=== PATIENT | female | born 1995 | race Hispanic/Latino ===

== ENCOUNTER 2017-08-21 09:27 | Emergency (ER) | payer OTHER ==
[~2017-08-21] VITALS: Ht 147.3 cm; Wt 74.8 kg
[~2017-08-21 09:27] MED LIST: ACTHAR H.P80 UNIT/1 SQ; ASA81 MG; ASPIR 8181 MG PO; ATORVASTATIN CA20 MG PO; BUMETANIDE1 MG PO; CALCIUM ACETAT667 M1 PO; CELLCEPT500 MG PO; FENOFIBRATE145 MG PO; HYDROXYCHLOROQ200 MG PO; LISINOPRIL2.5 MG PO; METOPROLOL TART25 MG PO; MILLIPRED5 MG PO; PEPCID20 MG PO; PREDNISOLONE; PREDNISONE20 MG PO; PREVACID30 MG PO; PROTONIX40 MG/ML PO; VITAMIN D1000 UNI1 PO; Z.0.CELLCEPT500 MG; Z.0.FLEXERIL10 MG; Z.0.HYDROXYCHLOROQ20; Z.0.OSCAL D500 MG; [UNRECOGNIZED DRUG - OTHER]; [UNRECOGNIZED DRUG - OTHER]
[2017-08-21] MEDS ORDERED: SODIUM CHLORIDE 0.9% 1000ML 1,000 ML IV STA ×2 (10:06→12:23)
[2017-08-21 10:55] LABS: BASOPHILS # (AUTO) 0.1 (0.0-0.1); BASOPHILS % 0.6 % (0.0-1.0); EOSINOPHILS % 0.5 % (0.0-6.0); HEMATOCRIT 37.2 % (34.2-44.1); LYMPHOCYTES # (AUTO) 1.5 (1.0-3.2); LYMPHOCYTES % 16.9 % (18.0-39.1); MEAN CORPUSCULAR HEMOGLOBIN 26.1 pg (28-32); MEAN CORPUSCULAR HGB CONC 32.3 g/dL (31-35); MONOCYTES # (AUTO) 0.6 (0.2-0.8); MONOCYTES % 7.3 % (4.4-11.3); NEUTROPHILS # (AUTO) 6.3 (2.1-6.9); NEUTROPHILS % 73.1 % (38.7-80.0); PLATELET COUNT 311 x10e3/uL (140-360); RED BLOOD COUNT 4.59 x10e6/uL (3.6-5.1); RED CELL DISTRIBUTION WIDTH 16.7 % (11.7-14.4)
[2017-08-21] MEDS ORDERED: KETOROLAC TROMETHAMINE 30 MG/ML VIAL IV ONE (11:00)
[2017-08-21 11:16] LABS: ALANINE AMINOTRANSFERASE 13 IU/L (0-55); ALBUMIN 1.3 g/dL (3.5-5.0); ALBUMIN/GLOBULIN RATIO 0.3 (0.8-2.0); ALKALINE PHOSPHATASE 51 IU/L (40-150); ANION GAP 10.8 mmol/L (8-16); BLOOD UREA NITROGEN 20 mg/dL (7-26); BUN/CREATININE RATIO 20 (6-25); CALCIUM 8.2 mg/dL (8.4-10.2); CARBON DIOXIDE 32 mmol/L (22-29); CHLORIDE 94 mmol/L (98-107); EST GLOMERULAR FILTRATION RATE > 60 ML/MIN (60-); GLUCOSE 83 mg/dL (74-118); SODIUM 134 mmol/L (136-145)
[2017-08-21 11:18] LABS: POTASSIUM 2.8 mmol/L (3.5-5.1)
[2017-08-21] MEDS ORDERED: ACETAMINOPHEN 325 MG TAB PO ONE (11:30)
[2017-08-21] MEDS ORDERED: OSELTAMIVIR PHOSPHATE 75 MG CAP PO ONE (11:45)
[2017-08-21 12:22] VITALS: BP 124/91
[2017-08-21] MEDS ORDERED: POTASSIUM CHLORIDE 20 MEQ TAB CR PO ONE (12:30)
--- NOTE | 2017-08-21 13:13 | Diagnostic Imaging Report ---
EXAMINATION: PA and lateral views of the chest. COMPARISON: CT abdomen and pelvis 01/09/2017 CLINICAL HISTORY: Cough, fever, headache DISCUSSION: Lines/tubes: None. Lungs: The lungs are well inflated and clear. There is no evidence of pneumonia or pulmonary edema. Pleura: There is no pleural effusion or pneumothorax. Heart and mediastinum: Cardiomediastinal silhouette is unremarkable. Pulmonary vasculature is normal. Bones and soft tissues: No acute bony abnormalities. IMPRESSION: No acute cardiopulmonary abnormalities. Signed by: Dr. Migel Larsen M.D. on 08/21/2017 1:10 PM
== END 2017-08-21 13:39 | disposition home or self-care (01) ==
LOC: ER 09:27
DX: R50.9 Fever, unspecified (principal); R05 Cough; R11.0 Nausea; R51 Headache; J09.X2 Influenza due to identified novel influenza A virus with other respiratory manifestations; E87.6 Hypokalemia
CPT/HCPCS: 36415; 71020; 80053; 85025; 87400; 96360; 99284; J7030

== ENCOUNTER → 2018-10-09 | Outpatient (CLI) | payer OTHER ==
--- NOTE | 2018-10-09 16:13 | Diagnostic Imaging Report ---
EXAM: US ABDOMEN COMPLETE DATE: 10/09/2018 3:08 PM INDICATION: Abdominal and flank pain, kidney stones COMPARISON: None TECHNIQUE: Transverse and longitudinal thomason scale and color doppler sonographic images of the upper abdomen were obtained. FINDINGS: LIVER 12.8 cm in the right midclavicular line. Normal echogenicity, normal contour, no masses. SPLEEN 10.4 cm in maximum diameter. Normal echogenicity, no masses. GALLBLADDER No stones, sludge, wall-thickening or pericholecystic fluid. Negative sonographic Chang's sign. BILE DUCTS No intra nor extra-hepatic biliary dilation. Common bile duct measures 0.3 cm PANCREAS: Poorly visualized secondary to overlying bowel gas. RIGHT KIDNEY: 10.9 cm in length Echogenicity: Normal Collecting System: No hydronephrosis Stones: None Cyst/Mass: None LEFT KIDNEY: 11.1 cm in length Echogenicity: Normal Collecting System: No hydronephrosis Stones: None Cyst/Mass: None VESSELS: Aorta: Nonaneurysmal Inferior Vena Cava: Patent Main Portal Vein: 1.1 cm, normal size with hepatopetal flow. FREE FLUID: None IMPRESSION: Unremarkable abdominal ultrasound. Signed by: Dr. Tho Scott M.D. on 10/09/2018 4:10 PM
== END ==
LOC: US 14:58
PROVIDERS: ATTEND Internal Medicine Nephrology
DX: R10.9 Unspecified abdominal pain (principal); M54.5 Low back pain
CPT/HCPCS: 76700

== ENCOUNTER 2019-06-05 10:49 | Emergency (ER) | payer OTHER ==
[~2019-06-05] VITALS: Ht 147.3 cm; Wt 63.5 kg
--- OUTSIDE RECORDS SUMMARY | 2019-06-05 10:51 | XMS REPORT ---
Author Author [facility] Address Unknown Phone Unavailable Care Team Providers Care Journal Box Inspector Name Role Phone CHEYANNEKARENJED LINDA Unavailable Unavailable Juan Jose ODEN Unavailable Unavailable Payers Payer Name Policy Type Policy Number Effective Date Expiration Date Problems This patient has no known problems. Allergies, Adverse Reactions, Alerts Allergy Name Allergy Type Status Severity Reaction(s) Onset Date Inactive Date Treating Clinician Comments vancomycin DA Active U 2018-11-28 00:00:00 amitriptyline DA Active [facility] 2018-07-31 00:00:00 cefazolin DA Active [place] 2018-07-31 00:00:00 amitriptyline DA Active [facility] 2018-07-23 00:00:00 cefazolin DA Active MO 2018-07-23 00:00:00 amitriptyline DA Active [place] 2017-10-19 00:00:00 cefazolin DA Active [place] 2017-10-19 00:00:00 Medications This patient has no known medications. Results Test Description Test Time Test Comments Text Results Atomic Results Result Comments - XR CHEST 2 V 2018-11-28 15:42:00 FAX: Terrance Griffiths MD [phone] [place]: St: PRE FAX: Gabriela Da Silva [phone] Name: RADHA WILKERSON : 1995 Age/S: 23/F [address] [place] [address] Unit #: [id number] Loc: [place] [address] Phys: Terrance Benitez MD Acct: [id number] Dis Date: Status: PRE SDC PHONE #: [phone] Exam Date: 11/28/2018 1539 FAX #: [phone] Reason: ESRD EXAMS: CPT CODE: [id number] XR CHEST 2 V 93829 2 view chest x-ray performed November 28, 2018 1534 hours. COMPARISON: August 22, 2018. CLINICAL HISTORY: End-stage renal disease. DISCUSSION: 2 views/ films of the chest are submitted. Right dual port dialysis catheter is present. Lungs are clear bilaterally. Cardiomediastinal silhouette is normal. Osseous structures are within normal limits. IMPRESSION: No acute cardiopulmonary findings at 1546 Reported and signed by: Jacy Conklin M.D. CC: Terrance Benitez MD; Gabriela Suarez MD Technologist: RT Jose Antonio(R), RTT Trnscrd Date/Time/By: 11/28/2018 (0357) : By: [email or web address] Orig Print D/T: S: 11/28/2018 (7519) PAGE 1 Signed Report BASIC METABOLIC PANEL 2018-11-28 15:34:00 SODIUM (test code=NA) 140 mEq/L 134-147 POTASSIUM (test code=K) 3.6 mEq/L 3.4-5.0 CHLORIDE (test code=CL) 107 mEq/L 100-108 CARBON DIOXIDE (test code=CO2) 29 mEq/L 21-33 ANION GAP (test code=GAP) 8 0-20 GLUCOSE (test code=GLU) 111 mg/dL 70-110 BLOOD UREA NITROGEN (test code=BUN) 19 mg/dL 7-18 GLOMERULAR FILTRATION RATE (test code=GFR) 10.6 110-120 Units of measure=ml/min/1.73 m2 CREATININE (test code=CREAT) 5.0 mg/dL 0.6-1.3 CALCIUM (test code=CA) 6.9 mg/dL 8.0-10.5 HCG SERUM [id number] 15:34:00* Test Item Value Reference Range Comments HCG SERUM QUAL (test code=HCGQL) SERUM NEGATIVE NEGATIVE BASIC METABOLIC [id number] 15:31:00* Test Item Value Reference Range Comments SODIUM (test code=NA) mEq/L 134-147 POTASSIUM (test code=K) mEq/L 3.4-5.0 CHLORIDE (test code=CL) mEq/L 100-108 CARBON DIOXIDE (test code=CO2) mEq/L 21-33 ANION GAP (test code=GAP) 0-20 GLUCOSE (test code=GLU) mg/dL 70-110 BLOOD UREA NITROGEN (test code=BUN) mg/dL 7-18 GLOMERULAR FILTRATION RATE (test code=GFR) 110-120 CREATININE (test code=CREAT) mg/dL 0.6-1.3 CALCIUM (test code=CA) mg/dL 8.0-10.5 HCG SERUM [id number] 15:31:00* Test Item Value Reference Range Comments [facility] [place] QUAL (test code=HCGQL) SERUM NEGATIVE NEGATIVE PROTHROMBIN [id number] 15:26:00* Test Item Value Reference Range Comments PROTHROMBIN TIME PATIENT (test code=PTP) 11.5 SECONDS 9.3-12.9 INTERNATIONAL NORMAL RATIO (test code=INR) 1.0 0.8-1.2 TARGET INR BY INDICATION Indication INR1. Prophylaxis of venous thrombosis 2.0 - 3.0 (orthopedic surgery), Prophylaxis of venous thrombosis (other than high-risk surgery), Treatment of Deep Vein Thrombosis/Pulmonary Embolism, Prevention of systemic embolism - Tissue heart valves, Acute Myocardial Infarction (to prevent systemic embolism), Valvular heart disease, Atrial Fibrillation, Bileaflet mechanical valve in aortic position.2. Mechanical prosthetic valves (high risk), 2.5 - 3.5 Presence of Lupus Anticoagulant or Antiphospholipid Antibodies, Prevention of systemic embolism - Acute Myocardial Infarction (to prevent recurrent infarct). THROMBOPLASTIN TIME [id number] 15:26:00* Test Item Value Reference Range Comments THROMBOPLASTIN TIME PARTIAL (test code=PTT) 37.2 Seconds 25.0-39.5 Therapeutic Range: 61.8-83.8 Sec Effective 09/25/2013 CBC W/AUTO [id number] 15:16:00* Test Item Value Reference Range Comments WHITE BLOOD CELL (test code=WBC) 6.74 x10 3/uL 4.5-11.0 RED BLOOD CELL (test code=RBC) 4.08 x10 6/uL 3.54-5.02 HEMOGLOBIN (test code=HGB) 11.2 g/dL 11.0-15.0 HEMATOCRIT (test code=HCT) 36.2 % 33.0-45.0 MEAN CELL VOLUME (test code=MCV) 88.7 fL 81.0-99.0 MEAN CELL HGB (test code=MCH) 27.5 pg 27.0-33.0 MEAN CELL HGB CONCETRATION (test code=MCHC) 30.9 g/dL 33.0-37.0 RED CELL DISTRIBUTION WIDTH CV (test code=RDW) 16.6 % 11.5-14.5 RED CELL DISTRIBUTION WIDTH SD (test code=RDW-SD) 53.1 fL 37.0-54.0 PLATELET COUNT (test code=PLT) 163 x10 3/uL 150-400 MEAN PLATELET VOLUME (test code=MPV) 11.1 fL 7.0-9.0 NEUTROPHIL % (test code=NT%) 75.8 % 56.0-77.0 IMMATURE GRANULOCYTE % (test code=IG%) 0.4 % 0.0-2.0 LYMPHOCYTE % (test code=LY%) 19.1 % 14.0-32.0 MONOCYTE % (test code=MO%) 3.4 % 4.8-9.0 EOSINOPHIL % (test code=EO%) 0.3 % 0.3-3.7 BASOPHIL % (test code=BA%) 1.0 % 0.0-2.0 NUCLEATED RBC % (test code=NRBC%) 4.3 % 0-0 NEUTROPHIL # (test code=NT#) 5.10 x10 3/uL 2.0-7.6 IMMATURE GRANULOCYTE # (test code=IG#) 0.03 x10 3/uL 0.00-0.03 LYMPHOCYTE # (test code=LY#) 1.29 x10 3/uL 1.0-3.8 MONOCYTE # (test code=MO#) 0.23 x10 3/uL 0.1-0.8 EOSINOPHIL # (test code=EO#) 0.02 x10 3/uL 0.0-0.2 BASOPHIL # (test code=BA#) 0.07 x10 3/uL 0.0-0.2 NUCLEATED RBC # (test code=NRBC#) 0.29 x10 3/uL 0.0-0.1 MANUAL DIFF REQUIRED (test code=MDIFF) NO US ABDOMEN [id number] 16:08:00 [place] [address] Patient Name: RADHA WILKERSON MR #: [id number] : 1995 Age/Sex: 23/F Req #: [id number] Adm Physician: Ordered by: JED CONNORS MD Report #: [id number] Location: US Room/Bed: Procedure: [id number] US/US ABDOMEN COMPLETE Exam Date: 10/09/18 Exam John e: 1540 REPORT STATUS: Signed EX AM: US ABDOMEN COMPLETE DATE: 10/09/2018 3:08 PM INDICATION: Abdominal an d flank pain, kidney stones COMPARISON: None TECHNIQUE: Transverse and long itudinal thomason scale and color doppler sonographic images of the upper abdomen were obtained. FINDINGS: LIVER 12.8 cm in the right midclavicular line. Normal echogenicity, normal contour, no masses. SPLEEN 10.4 cm in maximum diameter. Normal echogenicity, no masses. GALLBLADDER No ston es, sludge, wall-thickening or pericholecystic fluid. Negative sonographic Mur phy's sign. BILE DUCTS No intra nor extra-hepatic biliary dilation. Com mon bile duct measures 0.3 cm PANCREAS: Poorly visualized secondary to over lying bowel gas. RIGHT KIDNEY: 10.9 cm in length Echogenicity: Normal C ollecting System: No hydronephrosis Stones: None Cyst/Mass: None LEFT KIDNEY: 11.1 cm in length Echogenicity: Normal Collecting System: No hydro nephrosis Stones: None Cyst/Mass: None VESSELS: Aorta: Nonaneurysmal Inferior Vena Cava: Patent Main Portal Vein: 1.1 cm, normal size with hepat opetal flow. FREE FLUID: None IMPRESSION: Unremarkable abdominal ult rasound. Signed by: Dr. Jose G Scott M.D. on 10/09/2018 4:10 PM Di ctated By: JOSE G SCOTT MD 09 COPY TO: TONY CONNORS MD SURGICAL [id number] 13:21:00 RUN DATE: 08/21/18 [facility] *LIVE* PAGE 1 RUN TIME: 1321 Specimen Inqui ry RUN USER: INTERFACE PATIENT: RADHA WILKERSON ACCT #: [id number] LOC: SUSIE U #: [id number] AGE/SX: 23/F ROOM: [facility] RE08/14/18REG DR: Andrea Rios : [birth year] BED: 1 DIS: STATUS: ADM IN TLOC: SPEC #: [id number] RECD: 08/16/18 STATUS: HARJINDER POSEY #: [id number] [place]LEY: 08/16/[address]: Andrea Rios MD ENTERED: 08/20/18 SP TYPE: SURG SPEC OTHR DR: Valentina [facility] or Family Physician Self Referred Terrance Nelson MD, S vetang V MD Sarker, A ziza F MDORDERED: LEVEL 4 CODES: [id number] - KIDNEY, NOS COPIES TO: No Primary or [facility] Physician Self Referred Andrea Rios MD C/O [facility], [address] [place] [address] Terrance Benitez MD [address] [place] [address] Dylan Mason MD [address] [place], [place] [id number] Iona Vazquez MD [address] [place] [address] PROCEDURES: GM LEVEL 4 (Incomplete ) TISSUES: 1. KIDNEY, NOS - Kidney, left, bx. FINAL DIAGNOSIS Kidney, left, bx.: Sent to [facility] for processing and interpretation by the request of the attending physician. OUTSIDE CONSULTATION ONLY! CONTINUED ON NEXT PAGE RUN DATE: [facility] *LIVE* PAGE 2 R UN TIME: 1321 Specimen Inquiry RUN USER: INTERFACE ----- -------SPEC #: [id number] PATIENT: RADHA WILKERSON #[id number] (Continued) GROSS AND MICROSCOPIC GROSS DESCRIPTION : Received is a left kidney biopsy that will be sent to [facility] for proce ssing and interpretation by the request of the attending physician. OUTSIDE CONSULTATION ONLY! POST-OP DIAGNOSIS A cute kidney injury, nephrotic syndrome PRE-OP DIAGNOSIS Acute kidney injury, nephrotic syndrome Signed SIGNATURE ON FILE Bozena Ann MD 08/21/18 1324 END OF REPORT CHEST 2 VIEWS [facility] [address] [place] [address] Patient Name: RADHA WILKERSON MR #: [id number] : 1995 Age/Sex: 22/F Req #: [id number] Adm Physician: Ordered by: BRINA ODEN MD Report #: [id number] Location: ER Ro om/Bed: Procedure: [id number] DX/CHEST 2 VIEWS Exam D ate: 08/21/17 Exam Time: 1035 REPORT STATUS: Si gned EXAMINATION: PA and lateral views of the chest. COMPARISON: CT a bdomen and pelvis 01/09/2017 CLINICAL HISTORY: Cough, fever, headache DISCUSSION: Lines/tubes: None. Lungs: The lungs are well inflat ed and clear. There is no evidence of pneumonia or pulmonary edema. Pleur a: There is no pleural effusion or pneumothorax. Heart and mediastinum: C ardiomediastinal silhouette is unremarkable. Pulmonary vasculature is jen l. Bones and soft tissues: No acute bony abnormalities. IMPRESSION: No acute cardiopulmonary abnormalities. Signed by: Dr. Enoch Velázquez M.D. on 08/21/2017 1:10 PM Dictated By: SALLY VELÁZQUEZ MD 1310 Transcribed By: Wiliam GRANT on 08/21/17 1310 COPY TO: BRINA ODEN MD
--- OUTSIDE RECORDS SUMMARY | 2019-06-05 10:51 | XMS REPORT | Summary of Care ---
Author Author [facility] Address Unknown Phone Unavailable Care Team Providers Care Torpedoman'S Mate Name Role Phone Gabriela Suarez PCP Encounter Details Care Team Description Date Type Department Yosvany Mendez MD [address] [place] [address] [phone] 04/11/2019 [facility] [address] [place] [phone] Allergies Not on Filedocumented as of this encounter (statuses as of 04/11/2019) Medications Not on filedocumented as of this encounter (statuses as of 04/11/2019) Active Problems Not on filedocumented as of this encounter (statuses as of 04/11/2019) Social History Date Tobacco Use Types Packs/Day Years Used Never Assessed Sex Assigned at Date Recorded Not on file Industry Job Start Date Occupation Not on file Not on file Not on file Travel End Travel History Travel Start No recent travel history available. documented as of this encounter Last Filed Vital Signs Not on filedocumented in this encounter Plan of Treatment Health Maintenance Due Date Last Done Comments VARICELLA VACCINES (1 of 2007 2 - 13+ 2-dose series) HPV VACCINES (1 - Female 2009 3-dose series) CHLAMYDIA SCREENING 2010 DTaP,Tdap,and Td Vaccines 2013 (1 - Tdap) PAP SMEAR 2015 INFLUENZA VACCINE (#1) 2019 05/18/2017 PNEUMOCOCCAL 0-64 YEARS Aged Out No longer eligible based COMBINED SERIES on patient's age to complete this topic documented as of this encounter Results Not on filedocumented in this encounter Insurance Type Payer Benefit Subscriber ID Effective Phone Address Plan / Dates Group HMO/PPO/POS [facility] [id number] 2018-P [facility] resent PPO documented as of this encounter
--- OUTSIDE RECORDS SUMMARY | 2019-06-05 10:51 | XMS REPORT | Summary of Care ---
Author Author [facility] Organization [facility] Address Unknown Phone Unavailable Care Team Providers Care Certified Green Building Engineer Name Role Phone Gabriela Suarez PCP Reason for Visit * Reason Comments Transplant Status Update Encounter Details Care Team Description Date Type Department Yosvany Mendez MD [address] [place] [address] Transplant Status Update 04/12/2019 [facility] [address] [place] [address] Allergies Not on Filedocumented as of this encounter (statuses as of 04/12/2019) Medications Not on filedocumented as of this encounter (statuses as of 04/12/2019) Active Problems Not on filedocumented as of this encounter (statuses as of 04/12/2019) Social History Date Tobacco Use Types Packs/Day [...] Phone Address Plan / Dates Group HMO/PPO/POS [facility] [id number] 2018-P HEALTHCARE resent PPO documented as of this encounter
--- NOTE | 2019-06-05 11:26 | Diagnostic Imaging Report ---
EXAMINATION: KNEE 3VW RT - HOPD INDICATION: Trauma, fall COMPARISON: None FINDINGS: AP, lateral and oblique images of the right knee were obtained. No acute fracture or dislocation. Alignment is anatomic. No substantial joint effusion or degenerative change. The soft tissues appear unremarkable. IMPRESSION: No acute osseous injury. Signed by: Cony Ohara MD on 06/05/2019 11:23 AM
--- NOTE | 2019-06-05 11:29 | Diagnostic Imaging Report ---
EXAMINATION: FOOT 2 VIEW LT - HOPD INDICATION: Fall, trauma COMPARISON: None FINDINGS: AP and lateral images of the left foot demonstrate a subtle, nondisplaced fracture of the base of the fifth metatarsal which may be subacute. Tiny well-corticated ossific fragment just superficial to the fracture is likely related to old injury. IMPRESSION: Nondisplaced fracture of base of fifth metatarsal, possibly subacute. Signed by: Cony Ohara MD on 06/05/2019 11:25 AM
--- NOTE | 2019-06-05 11:30 | Diagnostic Imaging Report ---
EXAMINATION: ANKLE 3VIEW LT - HOPD INDICATION: Trauma, fall COMPARISON: None FINDINGS: AP, lateral and mortise views of the left ankle demonstrate no acute fracture or dislocation. Alignment is anatomic. No substantial joint effusion. The ankle mortise is intact and symmetric. Subtle, likely subacute nondisplaced fracture of the base of fifth metatarsal is further detailed on the dedicated foot radiograph. IMPRESSION: No acute osseous injury of the left ankle. Subtle, likely subacute nondisplaced fracture of the base of fifth metatarsal is further detailed on the dedicated foot radiograph. Signed by: Cony Ohara MD on 06/05/2019 11:27 AM
--- NOTE | 2019-06-05 11:50 | NUR ---
PT STATED SHE DOES NOT WANT A SPLINT PLACE ON FOOT, PT STATED SHE HAS A BOOT AT HOME FROM A PREVIOUS BREAK AND SHE WILL PUT IT ON ONCE SHE GETS HOME, DR DOMINIQUE EXPLAINED THE RISK TO NOT HAVING THE SPLINT, PT VERBALIZED UNDERSTANDING AND STATED SHE WILL PUT THE BOOT ON RIGHT AWAY WHEN SHE GETS HOME AND DECLINED SPLINT.
== END 2019-06-05 11:58 | disposition home or self-care (01) ==
LOC: FSED 10:49
DX: M79.672 Pain in left foot (principal); S80.211A Abrasion, right knee, initial encounter; W18.30XA Fall on same level, unspecified, initial encounter; Y99.0 Civilian activity done for income or pay; N18.6 End stage renal disease; Z99.2 Dependence on renal dialysis; M32.9 Systemic lupus erythematosus, unspecified
CPT/HCPCS: 99283

== ENCOUNTER 2023-07-26 21:57 | Emergency (ER) | payer MEDICARE, OTHER ==
[~2023-07-26] VITALS: Ht 147.3 cm; Wt 52.2 kg
[~2023-07-26 21:57] MED LIST changes: +AMOXICILLIN500 MG PO; +VENTOLIN HFA18 GM INH
[2023-07-26 22:10] VITALS: O2SAT 99
== END 2023-07-26 23:25 | disposition home or self-care (01) ==
LOC: FSED 22:07
DX: Z48.01 Encounter for change or removal of surgical wound dressing (principal); T81.30XA Disruption of wound, unspecified, initial encounter; N18.6 End stage renal disease; Z99.2 Dependence on renal dialysis; M32.9 Systemic lupus erythematosus, unspecified; T86.12 Kidney transplant failure
CPT/HCPCS: 99283